=== PATIENT | male | born 1925 | race Caucasian/White ===

== ENCOUNTER → 2017-02-08 | Outpatient (CLI) | payer MEDICARE, OTHER ==
[~2017-02-08] MED LIST: ACET-2161 PO; ACET1TAB12 PO; ALIS300T PO; ALLO300T2 PO; CALMOSEPTINE OINTMENT 3.5 G PACKET TOP ONE; CEPH-583 PO; CETI10CA19 PO; CHLO473M2 PO; CYAN10009 PO; CYCL-208 PO; DOCU-168 PO; DOXA8TAB PO; FERR325T40 PO; FLUT16SP EA NOSTRIL; GEMF600T61 PO; MELA5CAP PO; NYST15CR2 TOP; OXYM-40 NAS; POLY17PO6 PO; SIMV40TA82 PO; TRAZ-170 PO; [UNRECOGNIZED DRUG - CODE] PO
== END ==
LOC: NWCC 09:47
PROVIDERS: ATTEND Internal Medicine
DX: S30.810A Abrasion of lower back and pelvis, initial encounter (principal); S30.811A Abrasion of abdominal wall, initial encounter; B37.89 Other sites of candidiasis; L53.9 Erythematous condition, unspecified
CPT/HCPCS: A9270; G0463